=== PATIENT | male | born 2000 | race African-American/Black ===

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

== ENCOUNTER 2019-01-06 17:34 | Emergency (ER) | payer SELFPAY ==
[2019-01-06 19:21] LABS: #Lymphocytes 1.1 thou/uL (1.20-3.40); #Monocytes 0.4 thou/uL (0.11-0.59); #Neutrophils 5.3 thou/uL (1.40-6.50); %Basophils 0.3 % (0.0-1.0); %Eosinophils 0.5 % (0.0-10.0); %Monocytes 5.6 % (0.0-4.0); %Neutrophils 77.7 % (31.0-61.0); Hemoglobin 14.7 g/dL (14.0-18.0); Mean Corpuscular HGB CONC 34.5 g/dL (32.0-36.0); Mean Corpuscular Hemoglobin 30.5 pg (25.0-35.0); Mean Corpuscular Volume 88.2 fL (78.0-98.0); Mean Platelet Volume 7.1 fL (7.4-10.4); Platelet Count 284 thou/uL (130-400); RBC Distribution Width 11.5 % (11.5-14.5); Red Blood Cell (RBC) Count 4.82 mill/uL (4.00-5.20); White Blood Cell (WBC) Count 6.9 thou/uL (4.8-10.8)
[2019-01-06 19:45] LABS: ALT (SGPT) Less than 7 U/L (8-55); AST (SGOT) 14 U/L (10-45); Albumin 4.3 g/dL (3.5-5.0); Alkaline Phosphatase 67 U/L (Less than 750); Anion Gap 15 mmol/L (10-20); BUN (Urea Nitrogen) 9 mg/dL (8.4-21.0); Bilirubin, Total 1.3 mg/dL (0.2-1.2); CK (CPK) 179 U/L (30-200); Calc. Creatinine Clearance 0 mL/min (70-130); Calcium 9.7 mg/dL (7.8-10.44); Carbon Dioxide 24 mmol/L (22-29); Chloride 104 mmol/L (98-107); Estimated GFR-MDRD Greater than 90; Globulin 2.9 g/dL (2.4-3.5); Glucose 95 mg/dL (70-105); Lipase 6 U/L (8-78); Protein, Total 7.2 g/dL (6.0-8.3); Sodium 139 mmol/L (136-145)
--- NOTE | 2019-01-09 14:47 | EKG ---
Test Reason : Blood Pressure : / mmHG Vent. Rate : 058 BPM Atrial Rate : 058 BPM P-R Int : 136 ms QRS Dur : 100 ms QT Int : 414 ms P-R-T Axes : -01 045 049 degrees QTc Int : 406 ms Sinus bradycardia Otherwise normal ECG Confirmed by DINA SHARMA MD ([id number]), editor managing director MADAN ESPARZA ([id number] on 01/09/2019 2:46:54 PM Referred By: Confirmed By:DINA SHARMA MD
== END 2019-01-06 20:25 | disposition home or self-care (01) ==
LOC: ERS 17:34
DX: R06.02 Shortness of breath (principal); F31.9 Bipolar disorder, unspecified; Z87.891 Personal history of nicotine dependence
CPT/HCPCS: 36415; 80053; 82550; 83690; 84484; 85025; 85379; 93005

== ENCOUNTER 2019-01-07 00:10 | Emergency (ER) | payer SELFPAY ==
[2019-01-07 00:55] LABS: #Eosinphils 0.1 thou/uL (0.0-0.7); #Lymphocytes 1.5 thou/uL (1.20-3.40); #Monocytes 0.6 thou/uL (0.11-0.59); #Neutrophils 5.4 thou/uL (1.40-6.50); %Basophils 0.4 % (0.0-1.0); %Eosinophils 0.7 % (0.0-10.0); %Lymphocytes 19.9 % (28.0-48.0); %Monocytes 7.3 % (0.0-4.0); %Neutrophils 71.7 % (31.0-61.0); Hemoglobin 14.5 g/dL (14.0-18.0); Mean Corpuscular Hemoglobin 30.9 pg (25.0-35.0); Mean Corpuscular Volume 88.2 fL (78.0-98.0); Mean Platelet Volume 7.2 fL (7.4-10.4); Platelet Count 302 thou/uL (130-400); RBC Distribution Width 11.5 % (11.5-14.5); Red Blood Cell (RBC) Count 4.69 mill/uL (4.00-5.20); White Blood Cell (WBC) Count 7.6 thou/uL (4.8-10.8)
[2019-01-07 01:20] LABS: ALT (SGPT) Less than 7 U/L (8-55); AST (SGOT) 13 U/L (10-45); Albumin 4.3 g/dL (3.5-5.0); Alkaline Phosphatase 69 U/L (Less than 750); Anion Gap 15 mmol/L (10-20); BUN (Urea Nitrogen) 9 mg/dL (8.4-21.0); Bilirubin, Total 1.3 mg/dL (0.2-1.2); CK (CPK) 177 U/L (30-200); Calc. Creatinine Clearance 0 mL/min (70-130); Calcium 9.7 mg/dL (7.8-10.44); Carbon Dioxide 25 mmol/L (22-29); Chloride 103 mmol/L (98-107); Estimated GFR-MDRD Greater than 90; Globulin 3.1 g/dL (2.4-3.5); Glucose 108 mg/dL (70-105); Lipase 7 U/L (8-78); Potassium 3.7 mmol/L (3.5-5.1); Protein, Total 7.4 g/dL (6.0-8.3); Sodium 139 mmol/L (136-145)
[2019-01-07 01:50] LABS: Amphetamine Not Detected (NotDetected); Barbiturates Screen Not Detected (NotDetected); Benzodiazepine Screen Not Detected (NotDetected); Cocaine Metabolite Screen Not Detected (NotDetected); Medtox Control Line Valid? VALID (VALID); Medtox Reader # READER 1; Methadone Not Detected (NotDetected); Methamphetamine Not Detected (NotDetected); Opiate Screen Not Detected (NotDetected); Oxycodone Screen Not Detected (NotDetected); Phencyclidine (PCP) Not Detected (NotDetected); THC/Cannabinoid Screen Detected (NotDetected); Tricyclic Screen Not Detected (NotDetected)
--- NOTE | 2019-01-07 08:54 | RAD ---
SINGLE VIEW CHEST: Date: 01/07/19 COMPARISON: 02/19/05. HISTORY: Shortness of breath. FINDINGS: Single view of the chest shows a normal sized cardiomediastinal silhouette. There is no evidence of c onsolidation, mass, or pleural effusion. The bones are unremarkable. IMPRESSION: No evidence of acute cardiopulmonary disease. POS: CET
== END 2019-01-07 02:53 | disposition home or self-care (01) ==
LOC: ERS 00:10
DX: F12.10 Cannabis abuse, uncomplicated (principal); R06.02 Shortness of breath; F31.9 Bipolar disorder, unspecified; F17.210 Nicotine dependence, cigarettes, uncomplicated; Z79.899 Other long term (current) drug therapy
CPT/HCPCS: 71045; 80053; 80306; 82550; 83690; 84484; 85025; 93005

== ENCOUNTER 2019-01-07 18:28 | Emergency (ER) | payer SELFPAY ==
[2019-01-07] MEDS ORDERED: Ondansetron ODT 4 MG TAB ONE (19:26)
== END 2019-01-07 19:26 | disposition home or self-care (01) ==
LOC: ERS 18:28
DX: F41.1 Generalized anxiety disorder (principal); F31.9 Bipolar disorder, unspecified; Z87.891 Personal history of nicotine dependence; Z79.899 Other long term (current) drug therapy
CPT/HCPCS: 93005; Q0162

== ENCOUNTER 2019-01-08 00:15 | Emergency (ER) | payer OTHER, SELFPAY | END 2019-01-08 02:49 | disposition home or self-care (01) | LOC: ERS 00:15 | DX: F43.9 Reaction to severe stress, unspecified (principal); F31.9 Bipolar disorder, unspecified; Z87.891 Personal history of nicotine dependence; Z79.899 Other long term (current) drug therapy | CPT/HCPCS: 99283 ==

== ENCOUNTER 2019-01-11 00:16 | Emergency (ER) | payer BC, OTHER | END 2019-01-11 04:16 | disposition left against medical advice (07) | LOC: ERS 00:16 | DX: Z53.21 Procedure and treatment not carried out due to patient leaving prior to being seen by health care provider (principal) | CPT/HCPCS: 93005 ==

== ENCOUNTER 2019-01-12 04:20 | Emergency (ER) | payer BC, OTHER ==
[2019-01-12] MEDS ORDERED: Ondansetron ODT 4 MG TAB ONE (04:41)
[2019-01-12 04:46] LABS: #Basophils 0.1 thou/uL (0.0-0.2); #Eosinphils 0.2 thou/uL (0.0-0.7); #Lymphocytes 2.7 thou/uL (1.20-3.40); #Monocytes 0.7 thou/uL (0.11-0.59); #Neutrophils 2.3 thou/uL (1.40-6.50); %Basophils 1.6 % (0.0-1.0); %Eosinophils 3.4 % (0.0-10.0); %Lymphocytes 44.7 % (28.0-48.0); %Monocytes 11.2 % (0.0-4.0); %Neutrophils 39.1 % (31.0-61.0); Hemoglobin 13.3 g/dL (14.0-18.0); Mean Corpuscular HGB CONC 33.9 g/dL (32.0-36.0); Mean Corpuscular Hemoglobin 30.4 pg (25.0-35.0); Mean Corpuscular Volume 89.7 fL (78.0-98.0); Mean Platelet Volume 6.9 fL (7.4-10.4); Platelet Count 282 thou/uL (130-400); RBC Distribution Width 11.8 % (11.5-14.5); Red Blood Cell (RBC) Count 4.37 mill/uL (4.00-5.20)
[2019-01-12 05:09] LABS: ALT (SGPT) 7 U/L (8-55); AST (SGOT) 13 U/L (10-45); Albumin 3.9 g/dL (3.5-5.0); Alkaline Phosphatase 75 U/L (Less than 750); Anion Gap 11 mmol/L (10-20); BUN (Urea Nitrogen) 10 mg/dL (8.4-21.0); Bilirubin, Total 0.4 mg/dL (0.2-1.2); CK (CPK) 242 U/L (30-200); Calc. Creatinine Clearance 0 mL/min (70-130); Calcium 9.2 mg/dL (7.8-10.44); Carbon Dioxide 27 mmol/L (22-29); Chloride 106 mmol/L (98-107); Estimated GFR-MDRD Greater than 90; Globulin 2.7 g/dL (2.4-3.5); Glucose 91 mg/dL (70-105); Magnesium 1.8 mg/dL (1.7-2.2); Potassium 3.7 mmol/L (3.5-5.1); Protein, Total 6.6 g/dL (6.0-8.3); Sodium 140 mmol/L (136-145)
[2019-01-12 06:03] LABS: Troponin I Less than 0.010 ng/mL (< 0.028)
== END 2019-01-12 06:40 | disposition home or self-care (01) ==
LOC: ERS 04:20
DX: M62.82 Rhabdomyolysis (principal); E86.0 Dehydration; F31.9 Bipolar disorder, unspecified; Z87.891 Personal history of nicotine dependence; Z79.899 Other long term (current) drug therapy
CPT/HCPCS: 36415; 80053; 82550; 83735; 84484; 85025; 93005; Q0162

== ENCOUNTER 2019-02-06 09:32 | Emergency (ER) | payer BC, OTHER ==
[2019-02-06] MEDS ORDERED: Ketorolac Tromethamine 60 MG/2 ML VIAL ONE (10:45)
[2019-02-06] MEDS ORDERED: Metoclopramide HCl 10 MG TAB ONE (10:45)
== END 2019-02-06 11:42 | disposition home or self-care (01) ==
LOC: ERS 09:32
DX: G43.909 Migraine, unspecified, not intractable, without status migrainosus (principal); F31.9 Bipolar disorder, unspecified; Z79.899 Other long term (current) drug therapy
CPT/HCPCS: 96372; 99283; J1885; J8597

== ENCOUNTER 2019-03-05 22:48 | Emergency (ER) | payer BC, OTHER ==
[2019-03-05] MEDS ORDERED: diphenhydrAMINE 50 MG/ML VIAL ONE (23:26)
[2019-03-05] MEDS ORDERED: Ketorolac Tromethamine 30 MG/ML VIAL ONE (23:26)
[2019-03-05] MEDS ORDERED: Metoclopramide HCl 10 MG/2 ML VIAL ONE (23:26)
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
== END 2019-03-06 01:03 | disposition home or self-care (01) ==
LOC: ERS 22:48
DX: R51 Headache (principal); F31.9 Bipolar disorder, unspecified
CPT/HCPCS: 70450; 96361; 96365; 96375; J1200; J1885; J2765

== ENCOUNTER 2019-03-07 22:14 | Emergency (ER) | payer BC, OTHER ==
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
[2019-03-07] MEDS ORDERED: Adacel (T-DAP) 0.5 ML SYRINGE ONE (22:51)
[2019-03-07] MEDS ORDERED: Lidocaine 1% w/Epinephrine 1:100K 20 ML VIAL ONE (22:51)
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
[2019-03-08] MEDS ORDERED: Acetaminophen 500 MG TAB ONE (00:33)
[2019-03-08] MEDS ORDERED: Morphine 4 MG/ML VIAL ONE (00:33)
== END 2019-03-08 00:51 | disposition home or self-care (01) ==
LOC: ERS 22:14
DX: S02.32XA Fracture of orbital floor, left side, initial encounter for closed fracture (principal); Z23 Encounter for immunization; F31.9 Bipolar disorder, unspecified; Y04.2XXA Assault by strike against or bumped into by another person, initial encounter
CPT/HCPCS: 12011; 70450; 70486; 90471; 90715; J2001; J2270

== ENCOUNTER 2019-03-15 13:33 | Emergency (ER) | payer BC, OTHER | END 2019-03-15 14:05 | disposition home or self-care (01) | LOC: ERS 13:33 | DX: S01.112D Laceration without foreign body of left eyelid and periocular area, subsequent encounter (principal); F31.9 Bipolar disorder, unspecified; W22.8XXD Striking against or struck by other objects, subsequent encounter ==

== ENCOUNTER 2019-03-30 21:48 | Emergency (ER) | payer BC, OTHER ==
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
[2019-03-30] MEDS ORDERED: Ketorolac Tromethamine 30 MG/ML VIAL ONE (22:24)
== END 2019-03-30 23:15 | disposition home or self-care (01) ==
LOC: ERS 21:48
DX: R07.89 Other chest pain (principal); F31.9 Bipolar disorder, unspecified; F17.290 Nicotine dependence, other tobacco product, uncomplicated
CPT/HCPCS: 71045; 93005; 96372; J1885

== ENCOUNTER 2019-04-07 22:25 | Emergency (ER) | payer BC, OTHER ==
[2019-04-07 22:49] LABS: #Basophils 0.1 thou/uL (0.0-0.2); #Eosinphils 0.2 thou/uL (0.0-0.7); #Lymphocytes 2.7 thou/uL (1.20-3.40); #Monocytes 0.6 thou/uL (0.11-0.59); #Neutrophils 3.8 thou/uL (1.40-6.50); %Basophils 0.7 % (0.0-1.0); %Eosinophils 2.4 % (0.0-10.0); %Lymphocytes 37.3 % (28.0-48.0); %Monocytes 7.7 % (0.0-4.0); %Neutrophils 51.9 % (31.0-61.0); Hemoglobin 13.9 g/dL (14.0-18.0); Mean Corpuscular HGB CONC 34.2 g/dL (32.0-36.0); Mean Corpuscular Volume 87.7 fL (78.0-98.0); Mean Platelet Volume 6.9 fL (7.4-10.4); Platelet Count 295 thou/uL (130-400); RBC Distribution Width 11.7 % (11.5-14.5); Red Blood Cell (RBC) Count 4.64 mill/uL (4.00-5.20); White Blood Cell (WBC) Count 7.3 thou/uL (4.8-10.8)
[2019-04-07 23:08] LABS: ALT (SGPT) 8 U/L (8-55); AST (SGOT) 15 U/L (10-45); Acetaminophen Less than 6.0 mcg/mL (10.0-30.0); Albumin 3.8 g/dL (3.5-5.0); Alcohol Less than 10 mg/dL (Less than 10); Alkaline Phosphatase 55 U/L (50-130); Anion Gap 9 mmol/L (10-20); BUN (Urea Nitrogen) 9 mg/dL (8.4-21.0); Bilirubin, Total 0.5 mg/dL (0.2-1.2); Calc. Creatinine Clearance 0 mL/min (70-130); Calcium 8.6 mg/dL (7.8-10.44); Carbon Dioxide 25 mmol/L (22-29); Chloride 109 mmol/L (98-107); Estimated GFR-MDRD Greater than 90; Globulin 2.3 g/dL (2.4-3.5); Glucose 91 mg/dL (70-105); Potassium 3.8 mmol/L (3.5-5.1); Protein, Total 6.1 g/dL (6.0-8.3); Salicylate Less than 8.0 mg/dL (15.0-30.0); Sodium 139 mmol/L (136-145)
[2019-04-07 23:25] LABS: Amphetamine Not Detected (NotDetected); Barbiturates Screen Not Detected (NotDetected); Benzodiazepine Screen Not Detected (NotDetected); Cocaine Metabolite Screen Not Detected (NotDetected); Medtox Control Line Valid? VALID (VALID); Medtox Reader # READER 4; Methadone Not Detected (NotDetected); Methamphetamine Not Detected (NotDetected); Opiate Screen Not Detected (NotDetected); Oxycodone Screen Not Detected (NotDetected); Phencyclidine (PCP) Not Detected (NotDetected); THC/Cannabinoid Screen Detected (NotDetected); Tricyclic Screen Not Detected (NotDetected)
== END 2019-04-08 02:02 | disposition home or self-care (01) ==
LOC: ERS 22:25
DX: F32.9 Major depressive disorder, single episode, unspecified (principal)
CPT/HCPCS: 36415; 80053; 80306; 80307; 84443; 85025; 99285